=== PATIENT | female | born 1980 | race Caucasian/White ===

== ENCOUNTER 2018-08-17 19:24 | Emergency (ER) | payer BC, SELFPAY ==
[2018-08-17 19:38] VITALS: BP 141/90; PULSE 97; RESP 18; TEMP 37.3; O2SAT 97
--- NOTE | 2018-08-17 20:38 | ED.GENADUL_ITS ---
Discharge Plan Disposition Patient Disposition: HOME Condition: Stable Discharge Details Chief Complaint: Sorethroat Clinical Impression: Acute streptococcal pharyngitis Primary Care Provider: Jillian Cobb ED Provider: Reji Kulkarni Home Meds and New Rx's Prescriptions: New amoxicillin 500 mg capsule 500 mg PO BID Qty: 20 RF: 0 No Action ibuprofen 400 mg Tablet 400 mg PO QID PRNRF: 0 Discharge Instructions Instructions: Pharyngitis (ED) Stand Alone Forms: Work Release Referrals: Jillian Cobb, LIBRARY ASSISTANT [Primary Care Provider] - (As needed for reassessment) Medical Decision Making Patient presenting the emergency department chief complaint of sore throat. Sore throat x2 days. Patient has no trismus, no drooling, no unilateral swelling, and handling secretions appropriately. Patient has positive strep test. No other emergent findings are noted on exam. Patient treated with amoxicillin. Return precautions were discussed. After discussion of diagnosis and plan of care patient has no further needs, questions, or concerns and states clear understanding to return to the emergency department for any worsening symptoms. HPI General Mode of arrival: ambulatory . Date/Time Provider Initiated Documentation: 08/17/18 20:13 . Limitations to Documentation: no limitations . Information obtained by: patient and RN notes reviewed . History of Present Illness 37 year old F presents to the emergency department with the chief complaint of Sore throat , described as moderate, with intensity rated at 6. Quality is described as aching, and is localized to the mouth (Sore throat). Patient started experiencing this day(s) (2) and it has been constant. No relieving factors improve symptom(s), Patient notes no other symptoms.. Patient did receive the following treatments prior to arrival, none Related Data Home Medications Medication Instructions Recorded Confirmed amoxicillin 500 mg PO BID #20 cap 08/17/18 ibuprofen 400 mg PO QID PRN 08/17/18 08/17/18 Previous Rx's Medication Instructions Recorded amoxicillin 500 mg PO BID #20 cap 08/17/18 Allergies Allergy/AdvReac Type Severity Reaction Status Date / Time No Known Allergies Allergy Unverified 08/17/18 19:43 General Stated Complaint: Sorethroat LUCÍA: 4 Review of Systems Constitutional Reports chills, Reports fever(s), Denies headache(s) and Reports malaise ENT Denies change in voice, Denies dysphagia, Denies otalgia, Denies headache(s), Denies hoarseness, Denies lip swelling, Denies mouth lesions, Denies nasal congestion, Reports odynophagia, Reports sore throat, Denies throat swelling and Denies tongue swelling Cardiovascular Denies chest pain Respiratory Denies chest congestion and Denies cough Gastrointestinal Denies dysphagia and Reports odynophagia Neurologic Denies headache(s) Allergic/Immunologic Denies lip swelling, Denies throat swelling and Denies tongue swelling PFSH Family History Mother Neoplasm Father No problems noted. Sister No problems noted. Brother No problems noted. Grandfather No problems noted. Grandfather No problems noted. Grandmother No problems noted. Grandmother No problems noted. Maternal History Depression Social History Smoking/Tobacco Use Status: Never Alcohol Intake: current Alcohol Intake frequency: holidays/special occasions only Drug use: Never Substance use type: does not use Do you feel safe at home: Yes Do you feel safe in your relationship?: Yes Exam Const General: cooperative, healthy appearing, comfortable, no acute distress and not ill appearing Orientation: alert, awake and oriented x3 HENMT Head: normal to inspection and normocephalic Ears: hearing grossly normal bilaterally, external ears normal, TM's normal bilaterally and mastoids normal General nose exam: external nose normal and nares normal Mouth: oral mucosae normal, lip normal, tongue normal, no audible dysphonia, no drooling and no trismus Throat: uvula midline, abnormal tonsil bilaterally erythema and hypertrophy 2+ and no peritonsillar masses Neck Neck: normal visual inspection, full ROM, no lymphadenopathy and no meningeal signs Resp Effort & Inspection: normal respiratory effort, able to speak in complete sentences and no stridor Cardio Rate: regular rate Rhythm: regular rhythm Heart Sounds: S1 normal and S2 normal Skin General skin exam: no rashes or lesions noted Course Vital Signs Temperature 37.3 C 08/17/18 19:38 Pulse 97 H 08/17/18 19:38 Respiratory Rate 18 08/17/18 19:38 Blood Pressure 141/90 H 08/17/18 19:38 Pulse Oximetry 97 08/17/18 19:38 Temperature 37.3 C 08/17/18 19:38 Temperature Source Skin 08/17/18 19:38 Pulse 97 H 08/17/18 19:38 Respiratory Rate 18 08/17/18 19:38 Respiratory Effort Non-Labored 08/17/18 19:47 Blood Pressure 141/90 H 08/17/18 19:38 Blood Pressure Position Sitting 08/17/18 19:38 Pulse Oximetry 97 08/17/18 19:38 Oxygen Delivery Method Room Air 08/17/18 19:38 Oxygen Flow Rate 0 08/17/18 19:38 Pain Level 6 08/17/18 19:38 Comment 08/17/18 19:38 Lab/Test Results Lab/Test Results: POC Strep Test-FELIBERTO(Rapid) Start: 08/17/18 19:50 Freq: Status: Active Protocol: Document 08/17/18 19:53 (Rec: 08/17/18 19:53 [id number]) Strep test-FELIBERTO(Rapid)-POC POC-Strep test-FELIBERTO (Rapid) Positive POC-Strep test-FELIBERTO (Rapid) Positive
[2018-08-17] MEDS: Amoxicillin 500 MG CAP PO (21:04)
== END 2018-08-17 21:05 | disposition home or self-care (01) ==
PROVIDERS: Emergency Provider Nurse Practitioner Family; PCP Nurse Practitioner Gerontology
DX: J02.0 Streptococcal pharyngitis (principal)
CPT/HCPCS: 87880; 99283

== ENCOUNTER 2020-08-06 18:24 | Outpatient (REF) | payer BC, SELFPAY ==
--- NOTE | 2020-08-06 13:20 | PAPFT_PTH ---
PATIENT: Talya Aguirre LOC: [facility] U#:[id number] AGE/SX: 39/F ROOM: RE08/06/[address]: Yanelis De Leon APRN : 1980 BED: DIS: 08/06/2020 SPEC #: [id number] RECD: 08/07/20 12:47 STATUS: JOHN REKatrina #: [id number] LEXUS: 08/06/20 13:[address]: Yanelis De Leon DEPT: [facility] Cytology RECD BY: Martine Freeman Tissues: 1 - CX/ENDOCX FOR PAP SMEARS Procedures: PAP THIN PREP/UVM Screening HPV DNA PROBE Comments: [id number]
== END 2020-08-06 18:25 | disposition home or self-care (01) ==
LOC: LBN 18:24
DX: Z12.4 Encounter for screening for malignant neoplasm of cervix (principal); Z11.51 Encounter for screening for human papillomavirus (HPV)
CPT/HCPCS: 88142; 87624

== ENCOUNTER 2020-09-12 01:10 | Outpatient (CLI) | payer BC, SELFPAY ==
--- NOTE | 2020-09-12 07:15 | DI.US_ITS ---
Exam(s) US BREAST LT COMPLETE US BREAST RT COMPLETE EXAM: US BREAST BILATERAL COMPLETE CLINICAL HISTORY: Cysts at 3:00 right, 9:00 on the left,mother 40's BREAST CA,N63.20. TECHNIQUE: Complete ultrasound of BOTH BREASTS was performed INCLUDING ALL 4 QUADRANTS AND RETROAREO LAR REGIONS OF BOTH BREAST WELL BOTH AXILLARY REGIONS. COMPARISON: Today's baseline diagnostic mammogram was reviewed. FINDINGS: There is no evidence of solid or significant cystic lesions in all 4 quadrants of both breasts. Also no significant focal findings in the retroareolar regions bilaterally. There is no significant axillary adenopathy on either side. IMPRESSION: Negative bilateral complete breast ultrasound. BI-RADS Category 2 - Benign Findings Breast Density - Category B - Scattered areas of fibroglandular density Breast density Category C or D implies that the patient has dense breast tissue. Dense breast tissue can make it harder to find cancer on a mammogram. Dense breast tissue is also associated with an incr eased risk of breast cancer. This information about the result of the mammogram report was provided to the patient to raise their awareness. Use this report when you speak with the patient about their risks for breast cancer, which includes their family history. At that time, you may recommend additional screening tests (Ultrasoun d or MRI) as these tests may add significant information. A negative radiographic report should not delay biopsy if a dominant or clinically suspicious mass is present. Up to ten percent of cancers are not identified on mammography. A negative report may reinforce clinical impression. Adenosis and dense breasts may obscure an underlying neoplasm. False positive reports average 6 to 10%. Patient will receive a letter notifying them of these results.
--- NOTE | 2020-09-12 07:15 | DI.MAMMO_ITS ---
Exam(s) MAMMO DIAGNOSTIC BI EXAM: MAMMO DIAGNOSTIC BI CLINICAL HISTORY: Bilateral lumps palpated, with BR CA in mom in 40s,N63.20,N63.10. TECHNIQUE: Both CC and MLO views of both breasts were performed. Also performed additional spot 3D compression view of the left breast. 3D Tomosynthesistechnique and utilizing computer aided detectio n (CAD). COMPARISON: This is a baseline diagnostic mammogram on this 39-year-old patient. She has no breast complaints but apparently her provider felt a possible bilateral lumps. The patient apparently does not feel these. She is also not complaining of breast pain nor discharge. FINDINGS: Some asymmetric tissue anteriorly in the left breast has benign appearance. There are no obvious spiculated masses nor malignant-appearing microcalcification groups in either br east. There is no significant architectural distortion or skin thickening-traction. IMPRESSION: No radiographic evidence of malignancy Bilateral complete breast ultrasound performed following today's mammogram was also negative. Please see that separate report. BI-RADS Category 2 - Benign Findings Breast Density - Category B - Scattered areas of fibroglandular density Breast density Category C or D implies that the patient has dense breast tissue. Dense breast tissue can make it harder to find cancer on a mammogram. Dense breast tissue is also associated with an incr eased risk of breast cancer. This information about the result of the mammogram report was provided to the patient to raise their awareness. Use this report when you speak with the patient about their risks for breast cancer, which includes their family history. At that time, you may recommend additional screening tests (Ultrasoun d or MRI) as these tests may add significant information. A negative radiographic report should not delay biopsy if a dominant or clinically suspicious mass is present. Up to ten percent of cancers are not identified on mammography. A negative report may reinforce clinical impression. Adenosis and dense breasts may obscure an underlying neoplasm. False positive reports average 6 to 10%. Patient will receive a letter notifying them of these results.
== END 2020-09-12 01:30 ==
DX: R92.8 Other abnormal and inconclusive findings on diagnostic imaging of breast (principal); N60.01 Solitary cyst of right breast; N60.02 Solitary cyst of left breast; N63.10 Unspecified lump in the right breast, unspecified quadrant; N63.20 Unspecified lump in the left breast, unspecified quadrant; Z80.3 Family history of malignant neoplasm of breast
CPT/HCPCS: 76642; 77062; 77066; G0279

== ENCOUNTER 2020-11-07 03:18 | Outpatient (CLI) | payer BC, SELFPAY ==
[2020-11-07 13:05] LABS: ALT 28 U/L (14-59); AST 14 U/L (15-37); Albumin 4.3 g/dL (3.4-5.0); Alkaline Phosphatase 47 U/L (46-116); Anion Gap 9.8 mmol/L (3-11); BUN 15 mg/dL (7-18); Bilirubin, Total 0.4 mg/dL (0.2-1.0); CO2 28.2 mmol/L (21.0-32.0); CREATININE 0.9 mg/dL (0.55-1.02); Calcium 9.2 mg/dL (8.5-10.1); Calculated LDL 140 mg/dL (<100); Chloride 106 mmol/L (98-107); Cholesterol 198 mg/dL (<200); Glucose 99 mg/dL (74-106); HDL Cholesterol 40 mg/dL (40-60); Potassium 4.1 mmol/L (3.5-5.1); Sodium 144 mmol/L (136-145); TSH (W/Ref FT4) 2.14 uIU/mL (0.36-3.74); Total Protein 7.2 g/dL (6.4-8.2); Triglyceride 94 mg/dL (<150)
== END 2020-11-07 03:19 | disposition home or self-care (01) ==
LOC: LOS 03:18
DX: Z00.00 Encounter for general adult medical examination without abnormal findings (principal); Z13.220 Encounter for screening for lipoid disorders; Z68.36 Body mass index [BMI] 36.0-36.9, adult; Z13.29 Encounter for screening for other suspected endocrine disorder
CPT/HCPCS: 36415; 80053; 80061; 84443

== ENCOUNTER 2021-05-24 02:10 | Emergency (ER) | payer BC, SELFPAY ==
--- NOTE | 2021-05-24 02:00 | RT.EKG_ITS ---
APPROVED REPORT Exam: Resting ECG Reason for Exam: chest pain Patient Location: E HR:102 bpm ECG Measurements Heart Rate 102 AXIS HI 159 P 40 QRSd 91 QRS 19 QT 338 T 17 QTc 441 Conclusion Sinus tachycardia...rate> 99 Probable left atrial enlargement...P >50mS, <-0.10mV V1 Sinus Rhythm, no stemi. unremarkable
[2021-05-24 02:16] VITALS: BP 169/89; PULSE 116; RESP 17; TEMP 36.3; O2SAT 99
[2021-05-24 02:33] VITALS: BP 146/82; PULSE 76; PULSE 84; RESP 16; O2SAT 99
[2021-05-24 02:34] VITALS: PULSE 88; RESP 17; O2SAT 97
[2021-05-24] MEDS: Normal Saline 1,000 ML 1000 ML IV (02:35)
[2021-05-24 02:37] LABS: Abs Immature Grans 0.02 10^3/uL (0.0-0.06); Absolute Basophil Count 0.04 10^3/uL (0.0-0.2); Absolute Eosinophil Count 0.11 10^3/uL (0.0-0.7); Absolute Lymphocyte Count 2.68 10^3/uL (1.2-3.4); Absolute Monocyte Count 0.63 10^3/uL (0.1-0.8); Absolute Neutrophil Count 5.47 10^3/uL (1.2-6.7); Basophils % 0.4; Eosinophils % 1.2; HCT 43.1 % (36.0-46.0); HGB 14.8 g/dL (11.2-15.7); Immature Grans % 0.2; Lymphocytes % 29.9; MCH 30.6 pg (27.0-33.0); MCHC 34.3 % (32.0-36.0); MCV 89.2 fL (80-95); MPV 9.5 fL (8.0-11.0); Neutrophils % 61.3; Nucleated RBC 0 %; Platelet Count 323 10^3/uL (130-400); RBC 4.83 10^6/uL (3.93-5.22); RDW 11.9 % (11.7-14.6); RDW-SD 38.3 fL; WBC 8.95 10^3/uL (4.4-10.8)
--- NOTE | 2021-05-24 02:39 | W.ED.GENAD ---
Discharge Plan Disposition Patient Disposition: HOME Condition: Good Discharge Details Clinical Impression: Dehydration, Acute hypokalemia Primary Care Provider: Yanelis De Leon ED Provider: Nabil Artis Home Meds and New Rx's Prescriptions: Continued hydrochlorothiazide 25 mg tablet 25 mg PO QAM Qty: 90 3RF Discharge Instructions Instructions: Dehydration (ED), Hypokalemia (ED) Additional Instructions: At this time your laboratory work-up is returned and is very reassuring. Your heart rate has come down to normal level. Your laboratory work-up shows normal thyroid function, normal heart function. Your potassium is minimally low. Please eat a diet high in potassium for the next few days. I would recommend legumes, bananas, or avocados. Drink plenty of fluids, and stay well-hydrated throughout the day. We recommend 10 to 12 cups of water per day. If you notice any worsening of your symptoms, or any new symptoms such as vomiting, diarrhea, fever, chills, shortness of breath, chest pain, numbness, weakness, or fainting , please return immediately to the emergency department for reevaluation. Please follow up with your primary care provider as soon as possible for reassessment and reevaluation. As always, it was a pleasure participating in your medical care today. Referrals: Yanelis De Leon, MATERIALS CLERK [Primary Care Provider] - Medical Decision Making This is a pleasant 40-year-old female with a past medical history of hypertension, who presents today for evaluation of elevated heart rate. Patient is on hydrochlorothiazide, and she states being on this medication she does not drink much fluids throughout the day she will have been elevated heart rate usually in the evenings. This evening after admitting that she has not drunk much throughout the day at all patient states that she woke up from rest and noticed that her heart rate was mildly elevated. She states that she has whitecoat syndrome, and whenever she gets worried about her heart she becomes very nervous and anxious. She noticed that her heart rate persisted at a high level for an hour, and so she came to the ER for further evaluation. She did drink some fluids which normally relieves her symptoms but it did not tonight. She denies any chest pain, shortness of breath, chest tightness, arm neck or shoulder pain, nausea vomiting or diarrhea. She denies any recent alcohol intake, history of heart disease, family history of concerning dysrhythmias. No other complaints at this time. No history of blood clots or PEs. No other modifying factors. Physical exam is unremarkable aside for mildly dry mucous membranes. Upon arrival the patient's heart rate was initially about 125, EKG shows sinus rhythm. During our conversation and exam her heart rate increased to 100 on its own without intervention. I suspect she does have combination of mild dehydration coupled with mild anxiety, however abdomen abundance of caution we will evaluate for thyroid functionality, basic labs, gently rehydrate, monitor closely and reassess. We will rehydrate with 1 L of normal saline. Symptoms at this time appear inconsistent PE, fatal dysrhythmia, or ACS 3 AM Laboratory work-up has returned unremarkable aside from minimally low potassium at 3.3. We will give 40 mEq of oral potassium here to help replenish this. I think this is just an incidental finding. Heart rate has come down well without any significant intervention. Patient is feeling much better and would like to go home. No indication for dysrhythmia at this time clinically based on EKG labs and clinical assessment. Recommend close outpatient follow-up. Discussed red flags which to return. Diagnosis dehydration leading to mildly elevated heart rate, compounded by mild white coat syndrome. I have extensively reviewed the treatment plan and discharge instructions with the patient. I have addressed all patient concerns at this time. The patient was made aware of what symptoms to monitor for that would warrant a return to the emergency department. Discussed the plan with the patient, they demonstrate verbal understanding and agreement with our assessment and plan at this time. The documentation in this chart was dictated using [employer] dictation software. Please excuse any dictation errors. HPI General Date/Time Provider Initiated Documentation: 05/24/21 02:14. HPI Narrative: This is a pleasant 40-year-old female with a past medical history of hypertension, who presents today for evaluation of elevated heart rate. Patient is on hydrochlorothiazide, and she states being on this medication she does not drink much fluids throughout the day she will have been elevated heart rate usually in the evenings. This evening after admitting that she has not drunk much throughout the day at all patient states that she woke up from rest and noticed that her heart rate was mildly elevated. She states that she has whitecoat syndrome, and whenever she gets worried about her heart she becomes very nervous and anxious. She noticed that her heart rate persisted at a high level for an hour, and so she came to the ER for further evaluation. She did drink some fluids which normally relieves her symptoms but it did not tonight. She denies any chest pain, shortness of breath, chest tightness, arm neck or shoulder pain, nausea vomiting or diarrhea. She denies any recent alcohol intake, history of heart disease, family history of concerning dysrhythmias. No other complaints at this time. No history of blood clots or PEs. No other modifying factors. Related Data Home Medications Medication Instructions Recorded Confirmed hydrochlorothiazide 25 mg tablet 25 mg PO QAM #90 tab 08/06/20 08/06/20 Previous Rx's Medication Instructions Recorded hydrochlorothiazide 25 mg tablet 25 mg PO QAM #90 tab 08/06/20 Allergies Allergy/AdvReac Type Severity Reaction Status Date / Time No Known Allergies Allergy Verified 08/06/20 13:14 General Stated Complaint: Palpitatns LUCÍA: 2 Review of Systems All systems reviewed & are unremarkable except as noted in HPI and below PFSH All Active Problems (Updated 05/24/21 @ 03:05 by Nabil Artis DO) Dehydration (Acute) Acute hypokalemia (Acute) Elevated BP without diagnosis of hypertension (Acute) Family history of breast cancer (Acute) Breast mass, left (Acute) Breast mass, right (Acute) Annual physical exam (Acute) Increased body mass index (BMI) (Acute) Skin tag, acquired (Acute) Patient new to facility (Acute) Family History Mother Neoplasm Father No problems noted. Sister No problems noted. Brother No problems noted. Grandfather No problems noted. Grandfather No problems noted. Grandmother No problems noted. Grandmother No problems noted. Maternal History Depression Social History Smoking/Tobacco Use Status: Never Smoking risk assessment performed?: Yes Alcohol Intake: current Alcohol Intake frequency: holidays/special occasions only Drug use: Never Substance use type: does not use Do you feel safe at home: Yes Do you feel safe in your relationship?: Yes Exam Narrative Exam Narrative: 1.Const: Well-nourished, Well-developed, appearing stated age 2.Eyes: PERRL, no conjunctival injection, and symmetrical lids. 3.ENT: Atraumatic external nose and ears. Dry MM. Neck: Symmetric, trachea midline, No thyromegaly. 4.CVS: +S1/S2, No murmurs or gallops. Peripheral pulses 2+ and equal in all extremities. Brisk capillary refill in all extremities. 5.RESP: Unlabored respiratory effort. Clear to auscultation bilaterally. No wheezes rales or rhonchi 6.GI: Soft, Nontender/Nondistended, No hepatosplenomegaly. No guarding or rebound. 7.MSK: Normocephalic/Atraumatic, Extremities w/o deformity or ttp No cyanosis or clubbing, Normal movement of all extremities 8.Skin: Warm, Dry. No rashes or lesions. 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 Sensation grossly intact, no focal neurologic deficits. 10.Psych: (AAO) x3. Appropriate mood and affect Course Vital Signs Vital signs: Vital Signs Temperature 36.3 C L 05/24/21 02:16 Pulse 116 H 05/24/21 02:16 Respiratory Rate 17 05/24/21 02:16 Blood Pressure 169/89 H 05/24/21 02:16 Pulse Oximetry 99 05/24/21 02:16 Temperature 36.3 C L 05/24/21 02:16 Temperature Source Temporal Artery Scan 05/24/21 02:16 Pulse 116 H 05/24/21 02:16 Respiratory Rate 17 05/24/21 02:16 Respiratory Effort 05/24/21 02:20 Blood Pressure 169/89 H 05/24/21 02:16 Blood Pressure Position Sitting 05/24/21 02:16 Pulse Oximetry 99 05/24/21 02:16 Oxygen Delivery Method Room Air 05/24/21 02:16 Oxygen Flow Rate 0 05/24/21 02:16 Lab/Test Results Lab/Test Results: Laboratory Tests Range/Units 05/24/21 02:31 WBC (4.4-10.8) 10^3/uL 8.95 RBC (3.93-5.22) 10^6/uL 4.83 Hgb (11.2-15.7) g/dL 14.8 Hct (36.0-46.0) % 43.1 MCV (80-95) fL 89.2 MCH (27.0-33.0) pg 30.6 MCHC (32.0-36.0) % 34.3 RDW (11.7-14.6) % 11.9 Plt Count (130-400) 10^3/uL 323 MPV (8.0-11.0) fL 9.5 Immature Gran % 0.2 Neutrophils % 61.3 Lymphocytes % 29.9 Monocytes % 7.0 Eosinophils % 1.2 Basophils % 0.4 Nucleated RBC % % 0 Absolute Neutrophils (1.2-6.7) 10^3/uL 5.47 Absolute Lymphocytes (1.2-3.4) 10^3/uL 2.68 Absolute Monocytes (0.1-0.8) 10^3/uL 0.63 Absolute Eosinophils (0.0-0.7) 10^3/uL 0.11 Absolute Basophils (0.0-0.2) 10^3/uL 0.04
[2021-05-24 02:40] VITALS: PULSE 85; RESP 12; O2SAT 99
[2021-05-24 02:46] VITALS: BP 140/82; PULSE 85; PULSE 89; RESP 18; O2SAT 98
[2021-05-24 02:50] VITALS: PULSE 83; RESP 15; O2SAT 98
[2021-05-24 03:01] LABS: ALT 27 U/L (14-59); AST 15 U/L (15-37); Albumin 4.3 g/dL (3.4-5.0); Alkaline Phosphatase 51 U/L (46-116); BUN 14 mg/dL (7-18); Bilirubin, Total 0.6 mg/dL (0.2-1.0); CREATININE 0.8 mg/dL (0.55-1.02); Chloride 100 mmol/L (98-107); Glucose 117 mg/dL (74-106); Potassium 3.3 mmol/L (3.5-5.1); Sodium 136 mmol/L (136-145); TSH (W/Ref FT4) 3.03 uIU/mL (0.36-3.74); Total Protein 7.7 g/dL (6.4-8.2); Troponin I < 50 ng/L (<or=60)
[2021-05-24] MEDS: Potassium Chloride 20 MEQ TABCR 40 MEQ PO (03:15)
== END 2021-05-24 03:23 | disposition home or self-care (01) ==
PROVIDERS: Emergency Provider Student in an Organized Health Care Education/Training Program
DX: E86.0 Dehydration (principal); E87.6 Hypokalemia; R07.9 Chest pain, unspecified; R00.0 Tachycardia, unspecified
CPT/HCPCS: 80053; 93005; 96360; 99284; 84443; 84484; 85025; 93010; 99283

== ENCOUNTER 2021-06-19 02:49 | Outpatient (CLI) | payer BC, SELFPAY ==
[2021-06-19 17:26] LABS: Potassium 3.9 mmol/L (3.5-5.1)
== END 2021-06-19 02:50 | disposition home or self-care (01) ==
LOC: LBO 02:49
PROVIDERS: Visit Provider Family Medicine
DX: I10 Essential (primary) hypertension (principal)
CPT/HCPCS: 36415; 84132

== ENCOUNTER 2022-09-15 04:31 | Outpatient (CLI) | payer BC, SELFPAY ==
[2022-09-15 16:38] LABS: Hemoglobin A1C 5.5 % (<5.7)
[2022-09-15 17:58] LABS: Anion Gap 7.1 mmol/L (3-11); BUN 13 mg/dL (7-18); CO2 27.9 mmol/L (21.0-32.0); CREATININE 0.8 mg/dL (0.55-1.02); Calcium 9.5 mg/dL (8.5-10.1); Chloride 103 mmol/L (98-107); Estimated GFR 95.46 (mL/min/1.73m2); Glucose 100 mg/dL (74-106); Potassium 4.5 mmol/L (3.5-5.1); Sodium 138 mmol/L (136-145)
== END 2022-09-15 04:32 | disposition home or self-care (01) ==
LOC: LBO 04:31
PROVIDERS: PCP Nurse Practitioner Family; Visit Provider Nurse Practitioner Family
DX: I10 Essential (primary) hypertension (principal); R73.9 Hyperglycemia, unspecified
CPT/HCPCS: 36415; 80048; 83036

== ENCOUNTER 2022-09-24 15:19 | Outpatient (REF) | payer BC, SELFPAY ==
[2022-09-24 12:33] LABS: Microalb ug/mg Crea 7.6 ug/mg Cr
[2022-09-29 15:22] LABS: Urine Volume 2000 mL
== END 2022-09-24 15:20 | disposition home or self-care (01) ==
LOC: LBN 15:19
PROVIDERS: PCP Nurse Practitioner Family; Visit Provider Nurse Practitioner Family
DX: I10 Essential (primary) hypertension (principal)
CPT/HCPCS: 81050; 82043; 82384; 82570

== ENCOUNTER 2024-01-19 02:06 | Outpatient (CLI) | payer BC, SELFPAY ==
[2024-01-19 13:25] LABS: Anion Gap 8.4 mmol/L (3-11); BUN 18 mg/dL (7-18); CO2 30.6 mmol/L (21.0-32.0); CREATININE 0.9 mg/dL (0.55-1.02); Calcium 9.5 mg/dL (8.5-10.1); Chloride 102 mmol/L (98-107); Estimated GFR 81.86 (mL/min/1.73m2); Glucose 95 mg/dL (74-106); Sodium 141 mmol/L (136-145)
== END 2024-01-19 02:07 | disposition home or self-care (01) ==
LOC: LBO 02:06
PROVIDERS: PCP Nurse Practitioner Family; Visit Provider Nurse Practitioner Family
DX: I10 Essential (primary) hypertension (principal)
CPT/HCPCS: 36415; 80048

== ENCOUNTER 2024-01-21 10:59 | Outpatient (REF) | payer BC, SELFPAY ==
[2024-01-21 15:49] LABS: Potassium 3.7 mmol/L (3.5-5.1)
== END 2024-01-21 11:00 | disposition home or self-care (01) ==
LOC: LBN 10:59
PROVIDERS: PCP Nurse Practitioner Family; Visit Provider Nurse Practitioner Family
DX: E87.6 Hypokalemia (principal); Z01.30 Encounter for examination of blood pressure without abnormal findings; Z12.39 Encounter for other screening for malignant neoplasm of breast
CPT/HCPCS: 84132

== ENCOUNTER 2024-01-22 00:36 | Outpatient (CLI) | payer BC, SELFPAY ==
--- NOTE | 2024-01-22 07:00 | DI.MAMMO_ITS ---
Exam(s) MAMMO SCREENING EXAM: MAMMO SCREENING CLINICAL HISTORY: screening,z12.39. TECHNIQUE: Bilateral full field digital CC and MLO mammographic images were obtained with 3D tomosyn thesis and utilizing computer aided detection (CAD). COMPARISON: Prior baseline mammogram and ultrasound 2020 was reviewed FINDINGS: There has been no significant change in the appearance and distribution of the fibroglandular tissue. There are no CAD designations. There are no new spiculated masses nor malignant appearing microcalcification groups. Small 2 millimeter nodular density in the cnlausnu-qbsjrvjro-hyzugh aspect of the right breast is not ed which is superficial and consistent with a small skin mole. There is no significant architectural distortion nor skin thickening-retraction. IMPRESSION: Benign findings. No radiographic evidence of malignancy. BI-RADS Category 2 - Benign Findings Breast Density - Category B - Scattered areas of fibroglandular density Breast density Category C or D implies that the patient has dense breast tissue. Dense breast tissue can make it harder to find cancer on a mammogram. Dense breast tissue is also associated with an incr eased risk of breast cancer. This information about the result of the mammogram report was provided to the patient to raise their awareness. Use this report when you speak with the patient about their risks for breast cancer, which includes their family history. At that time, you may recommend additional screening tests (Ultrasoun d or MRI) as these tests may add significant information. A negative radiographic report should not delay biopsy if a dominant or clinically suspicious mass is present. Up to ten percent of cancers are not identified on mammography. A negative report may reinforce clinical impression. Adenosis and dense breasts may obscure an underlying neoplasm. False positive reports average 6 to 10%. Patient will receive a letter notifying them of these results.
== END 2024-01-22 00:56 ==
LOC: DI 00:36
PROVIDERS: PCP Nurse Practitioner Family; Visit Provider Nurse Practitioner Family
DX: Z12.31 Encounter for screening mammogram for malignant neoplasm of breast (principal)
CPT/HCPCS: 77063; 77067

== ENCOUNTER 2024-12-30 09:41 | Outpatient (CLI) | payer BC, SELFPAY ==
[2024-12-30 12:48] LABS: Anion Gap 7.9 mmol/L (3-11); BUN 13 mg/dL (7-18); CO2 29.1 mmol/L (21.0-32.0); Calcium 8.9 mg/dL (8.5-10.1); Chloride 103 mmol/L (98-107); Estimated GFR 93.70 (mL/min/1.73m2); Glucose 103 mg/dL (74-106); Potassium 3.3 mmol/L (3.5-5.1); Sodium 140 mmol/L (136-145)
== END 2024-12-30 09:42 | disposition home or self-care (01) ==
LOC: LBO 09:41
PROVIDERS: PCP Nurse Practitioner Family; Visit Provider Nurse Practitioner Family
DX: I10 Essential (primary) hypertension (principal)
CPT/HCPCS: 36415; 80048